=== PATIENT | male | born 1955 | race Caucasian/White ===

== ENCOUNTER 2017-05-21 16:00 | Observation (INO) | payer OTHER ==
[~2017-05-21] VITALS: Ht 180.3 cm; Wt 90.2 kg
[2017-05-21] MEDS ORDERED: ONDANSETRON INJ 2 MG/ML 2 ML VIAL IV STA (16:17)
[2017-05-21] MEDS ORDERED: SODIUM CHLORIDE 0.9% 1000ML 1,000 ML IV STA (16:17)
[2017-05-21] MEDS ORDERED: MoRPHine SULFATE 4 MG/ML 1 ML CARP\\VIAL IV PRN (16:30)
[2017-05-21 16:33] LABS: BASO % 0.1 %; BASO ABS # 0.02 K/uL (0-0.2); COMPLETE YES; EOS % 4.9 %; HEMATOCRIT 42.5 % (42-52); IG% 0.3 %; LYMPH % 16.9 %; MEAN CELL VOLUME 98.4 fL (80-100); MEAN CORPUSCULAR HEMOGLOBIN 33.6 pg (25-34); MEAN CORPUSCULAR HGB CONC 34.1 g/dl (32-36); MEAN PLATELET VOLUME 9.5 fL (7.4-10.4); MONO % 5.7 %; NEUT % 72.1 %; PLATELET COUNT 234 K/uL (130-400); RED BLOOD COUNT 4.32 M/uL (4.7-6.1); WHITE BLOOD COUNT 13.59 K/uL (4.8-10.8)
[2017-05-21 16:44] LABS: PARTIAL THROMBOPLASTIN RATIO 0.9; PROTHROMBIN TIME (PATIENT) 10.4 SECONDS (9.0-12.0)
[2017-05-21] MEDS ORDERED: ATOR-24 PO (16:44)
[2017-05-21] MEDS ORDERED: SPRIN/30 INH (16:45)
[2017-05-21] MEDS ORDERED: DiphenhydrAMINE HCL 50 MG/ML VIAL IV STA (16:46)
[2017-05-21] MEDS ORDERED: TIOTROPIUM 18 MCG INH (16:47)
[2017-05-21] MEDS ORDERED: MOME200A INH (16:48)
[2017-05-21] MEDS ORDERED: MONT1TAB5 PO (16:49)
[2017-05-21] MEDS ORDERED: NITR0.4S UT (16:50)
[2017-05-21 16:52] LABS: ALT/SGPT 24 U/L (12-78); AST/SGOT 25 U/L (15-37); BLOOD UREA NITROGEN 14 mg/dl (7-18); BUN/CREATININE RATIO 12.4 (10-20); CALCIUM 8.2 mg/dl (8.5-10.1); CARBON DIOXIDE 24 mmol/L (21-32); CHLORIDE 110 mmol/L (98-107); GLUCOSE 114 mg/dl (70-99); POTASSIUM 3.6 mmol/L (3.5-5.1); SODIUM 141 mmol/L (136-145)
[2017-05-21] MEDS ORDERED: OFLO0.3D4 OTR (16:52)
[2017-05-21] MEDS ORDERED: PRVHFAIN INH (16:55)
[2017-05-21 16:57] LABS: ALKALINE PHOSPHATASE 75 U/L (45-117)
[2017-05-21] MEDS ORDERED: AMOX875T PO (16:57)
--- NOTE | 2017-05-21 17:17 | DIAGNOSTIC IMAGING REPORT ---
CHEST ONE VIEW PORTABLE CLINICAL HISTORY: CHEST PAIN dyspnea COMPARISON STUDY: No previous studies for comparison. FINDINGS: Mild emphysematous change. Slight interstitial prominence. Mild fullness of the azygos esophageal recess. Minimal plate like atelectasis lung bases. IMPRESSION: 1. Mild fullness of the azygos esophageal recess. 2. Mild emphysematous change. 3. CT of chest is suggested as follow-up . This should be performed with intravenous contrast enhancement for satisfactory soft tissue differentiation purposes The above report was generated using voice recognition software. It may contain grammatical, syntax or spelling errors. Electronically signed by: Kwasi Mitchell M.D. 05/21/2017 5:03 PM Dictated Date/Time: 05/21/2017 5:01 PM
--- NOTE | 2017-05-21 17:26 | DIAGNOSTIC IMAGING REPORT ---
ABD/PELVIS NO IV OR ORAL CONT CT DOSE: 541.24 mGy.cm HISTORY: Pain left sided pain TECHNIQUE: Multiaxial CT images of the abdomen and pelvis were performed without contrast. A dose lowering technique was utilized adhering to the principles of ALARA. COMPARISON STUDY: None. FINDINGS: Mild bibasilar atelectasis. Prior cholecystectomy. Morphology of the liver and spleen are unremarkable. Fatty replacement of the pancreas. Suggestion of slight infiltrative change of the fat surrounding the pancreatic head and uncinate process. Several small surrounding nodes. No evidence for pancreatic or biliary ductal distention. Pancreatitis is considered. No evidence for abscess collection or obstruction. Kidneys negative for calcification or hydronephrosis. Generalized ectasia and atherosclerotic change abdominal aorta. Bowel pattern is considered nonobstructive. Bladder is midline. IMPRESSION: 1. Prior cholecystectomy. 2. Minimal infiltrative change of the peripancreatic fascial planes involving the pancreatic head and uncinate process. Possibility of low-grade pancreatitis is considered. Correlation with pancreatic enzymes status is recommended. Several small scattered peripancreatic nodes all less than 9 mm. 3. Mild bibasilar atelectasis. The above report was generated using voice recognition software. It may contain grammatical, syntax or spelling errors. Electronically signed by: Kwasi Mitchell M.D. 05/21/2017 5:24 PM Dictated Date/Time: 05/21/2017 5:18 PM
[2017-05-21] MEDS ORDERED: FAMOTIDINE 20MG/102 ML D5W IV STA (17:42)
[2017-05-21] MEDS ORDERED: PANTOprazole INJ 40 MG in SYRINGE 0 ML IV ONE ×2 (17:45→21:00)
--- NOTE | 2017-05-21 18:28 | EMERGENCY ROOM VISIT NOTE ---
History Report prepared by Mariselaibmagen: Cindy Hummel Under the Supervision of: Dr. Scott Crocker D.O. First contact with patient: 15:53 Chief Complaint: CHEST PAIN Stated Complaint: CHEST PAIN History of Present Illness The patient is a 62 year old male who presents to the Emergency Room with complaints of persistent chest pain that started prior to arrival. He was brought to the ED via EMS. The patient states he was at the [facility] in [place] prior to arrival for his 's doctor appointment when the pain came on suddenly. He rates his discomfort as a 9/10 in severity. He was given 324 mg of Aspirin, 2 Nitro, 800 ml NSS and 10 mg of Morphine in the field and reports they have only provided minimal relief. The patient also complains of epigastric abdominal pain and states his chest pain radiates into his left arm, shoulder and neck. He admits he experienced an UT approximately 13 years ago and also has past history of COPD. He is a current smoker. Source of History: patient Onset: [employer] Position: chest Symptom Intensity: 9/10 Timing: other (persistent) Modifying Factors (Relieving): other (Aspirin, Nitroglycerin) Review of Systems See HPI for pertinent positives & negatives. A total of 10 systems reviewed and were otherwise negative. Past Medical & Surgical Medical Problems: (1) COPD (chronic obstructive pulmonary disease) (2) Hyperlipidemia Surgical Problems: (1) History of cholecystectomy Family History Diabetes mellitus Heart disease Social History Smoking Status: Current Every Day Smoker Alcohol Use: none Drug Use: none Marital Status: Housing Status: lives with family Occupation Status: retired Current/Historical Medications Scheduled Amoxicillin & Pot Clavulanate (Augmentin 875-125 mg), 1 TAB PO BID Aspirin (Aspirin EC Low Dose), 81 MG PO QAM Atorvastatin (Lipitor), 40 MG PO DAILY Mometasone Furoate-Formoterol (Dulera 200/5 Mcg), 2 PUFFS INH BID Montelukast Sodium (Montelukast Sodium), 10 MG PO HS Nicotine (Nicoderm Cq 14MG Patch), 1 PATCH TD QAM Nitroglycerin (Nitrostat), 0.4 MG UT PRN Ofloxacin (Otic) (Floxin Otic), 7-8 DROPS OTR BID Tiotropium [place] (Spiriva Handihaler), 1 CAP INH DAILY [Spiriva Handih 18MCG], 1 CAP INH DAILY Scheduled PRN Albuterol (Ventolin Hfa), 2 PUFFS INH Q6 PRN for SOB/Wheezing Allergies Coded Allergies: Ibuprofen (Verified Allergy, Intermediate, HIVES/EDEMA, 05/21/17) Physical Exam Vital Signs Date Time Temp Pulse Resp B/P (MAP) Pulse Ox O2 Delivery O2 Flow Rate FiO2 05/21/17 18:12 74 20 114/70 94 Nasal Cannula 2.0 05/21/17 16:22 98 Room Air 05/21/17 16:20 37.1 81 20 116/69 98 Room Air 05/21/17 16:18 99 Nasal Cannula 2.0 05/21/17 16:15 99 Room Air 2.0 05/21/17 16:15 80 Physical Exam GENERAL: Patient is awake, alert, very anxious appearing and appears to be uncomfortable. EYES: The conjunctivae are clear. The pupils are round and reactive. EARS, NOSE, MOUTH AND THROAT: The nose is without any evidence of any deformity. Mucous membranes are moist tongue is midline NECK: The neck is nontender and supple. RESPIRATORY: Expiratory wheezing in all lung priest, no tachypnea or conversational dyspnea. CARDIOVASCULAR: Regular rate and rhythm noted there no murmurs rubs or gallops normal S1 normal S2 GASTROINTESTINAL: The abdomen is moderately distended but soft, left sided abdominal pain for palpation, no guarding or rigidity. PELVIS: The Pelvis is stable. No tenderness to palpation is noted. BACK: No midline tenderness or or step-off noted range of motion in flexion extension as well as rotation no signs of muscle spasm noted MUSCULOSKELETAL/EXTREMITIES: There is no evidence of gross deformity full range of motion is noted in the hips and shoulders SKIN: There is no obvious evidence of any rash. There are no petechiae, pallor or cyanosis noted. NEUROLOGIC: Patient is awake alert and oriented x3 Medical Decision & Procedures ER Provider Diagnostic Interpretation: Radiology results as stated below per my review and radiologist interpretation: CHEST ONE VIEW PORTABLE CLINICAL HISTORY: CHEST PAIN dyspnea COMPARISON STUDY: No previous studies for comparison. FINDINGS: Mild emphysematous change. Slight interstitial prominence. Mild fullness of the azygos esophageal recess. Minimal plate like atelectasis lung bases. IMPRESSION: 1. Mild fullness of the azygos esophageal recess. 2. Mild emphysematous change. 3. CT of chest is suggested as follow-up . This should be performed with intravenous contrast enhancement for satisfactory soft tissue differentiation purposes The above report was generated using voice recognition software. It may contain grammatical, syntax or spelling errors. Electronically signed by: Kwasi Mitchell M.D. 05/21/2017 5:03 PM ABD/PELVIS NO IV OR ORAL CONT CT DOSE: 541.24 mGy.cm HISTORY: Pain left sided pain TECHNIQUE: Multiaxial CT images of the abdomen and pelvis were performed without contrast. A dose lowering technique was utilized adhering to the principles of ALARA. COMPARISON STUDY: None. FINDINGS: Mild bibasilar atelectasis. Prior cholecystectomy. Morphology of the liver and spleen are unremarkable. Fatty replacement of the pancreas. Suggestion of slight infiltrative change of the fat surrounding the pancreatic head and uncinate process. Several small surrounding nodes. No evidence for pancreatic or biliary ductal distention. Pancreatitis is considered. No evidence for abscess collection or obstruction. Kidneys negative for calcification or hydronephrosis. Generalized ectasia and atherosclerotic change abdominal aorta. Bowel pattern is considered nonobstructive. Bladder is midline. IMPRESSION: 1. Prior cholecystectomy. 2. Minimal infiltrative change of the peripancreatic fascial planes involving the pancreatic head and uncinate process. Possibility of low-grade pancreatitis is considered. Correlation with pancreatic enzymes status is recommended. Several small scattered peripancreatic nodes all less than 9 mm. 3. Mild bibasilar atelectasis. The above report was generated using voice recognition software. It may contain grammatical, syntax or spelling errors. Electronically signed by: Kwasi Mitchell M.D. 05/21/2017 5:24 PM Laboratory Results 05/21/17 16:20 Test 05/21/17 16:20 05/21/17 16:26 Prothrombin Time 10.4 SECONDS (9.0-12.0) Prothromb Time International Ratio 1.0 (0.9-1.1) Activated Partial Thromboplast Time 24.2 SECONDS (21.0-31.0) Partial Thromboplastin Ratio 0.9 D-Dimer 860 ug/L FEU (0-500) Anion Gap 7.0 mmol/L (3-11) Est Creatinine Clear Calc Drug Dose 82.4 ml/min Estimated GFR () 82.4 Estimated GFR (Non- 71.1 BUN/Creatinine Ratio 12.4 (10-20) Calcium Level 8.2 mg/dl (8.5-10.1) Bedside Troponin I < 0.030 ng/ml (0-0.045) Laboratory results per my review. Medications Administered Medications (Trade) Dose Ordered Sig/De Route Start Time Stop Time Status Last Admin Dose Admin Morphine Sulfate (MoRPHine SULFATE INJ) 4 mg Q15M PRN IV 05/21/17 16:30 05/21/17 20:32 DC 05/21/17 16:33 4 MG Ondansetron HCl (Zofran Inj) 4 mg NOW STAT IV 05/21/17 16:17 05/21/17 16:18 DC 05/21/17 16:34 4 MG Sodium Chloride 1,000 ml @ 250 mls/hr Q4H STAT IV 05/21/17 16:17 05/21/17 20:16 DC 05/21/17 16:34 250 MLS/HR Diphenhydramine HCl (Benadryl Inj) 25 mg NOW STAT IV 05/21/17 16:46 05/21/17 16:47 DC 05/21/17 16:52 25 MG Pantoprazole Sodium 40 mg/ Syringe 10 ml @ 5 mls/min NOW ONCE IV 05/21/17 17:45 05/21/17 17:46 DC 05/21/17 18:11 5 MLS/MIN Famotidine (Pepcid 20mg/100 ml) 20 mg ONE STAT IV 05/21/17 17:42 05/21/17 17:43 DC 05/21/17 18:11 20 MG Sodium Chloride 1,000 ml @ 50 mls/hr Q20H IV 05/21/17 18:21 06/20/17 18:20 05/23/17 19:40 50 MLS/HR ECG Indication: chest pain Rate (beats per minute): 76 Rhythm: normal sinus Findings: no ectopy, other (No acute ST segment abnormalities) Change: no significant change (No change from EKG performed on September 05, 2015) Change: EKG performed at the patient's doctor's office prior to arrival showed a normal sinus rhythm, rate of 95, no ectopy, no acute ST segment abnormalities. ED Course 1610: The patient was evaluated in room B2. A complete history and physical examination were performed. 1617: NSS 1000 ml @ 250 mls/hr IV, Zofran 4 mg IV. 1630: Morphine Sulfate 4 mg IV. 1646: Benadryl 25 mg IV. 1742: Famotidine 20 mg/100 ml IV. 1745: Pantoprazole Sodium 40 mg/Syringe 10 ml @ 5 mls/hr IV. 174: I reevaluated the patient. He is feeling better and resting comfortably. I discussed my recommendation he remain in the hospital for further evaluation and management and he verbalized complete understanding and agreement. 175: I discussed the patients case with Dr. Ravi [facility] Hospitalist. The patient will be further evaluated. Medical Decision Prior records/ancillary studies reviewed. Triage Nursing notes reviewed. The patient's history was concerning for chest pain. Differential diagnosis: Etiologies such as cardiac ischemia, aortic dissection, pulmonary embolism, pneumonia, pneumothorax, musculoskeletal, infections, pericarditis, myocarditis , esophageal rupture, gastrointestinal, as well as others were entertained. The patient is a 62-year-old male who presented to the emergency department by ambulance from his primary care physician's office for epigastric pain. The patient has a history of coronary artery disease. He felt this pain was similar to his previous coronary artery disease. Patient's prehospital EKGs were reviewed. The patient appeared to have mild abdomen abnormalities in the inferior and high lateral leads but appeared very similar to previous EKGs. The patient was treated with IV pain medication prior to arrival. He was given aspirin as well. I discussed the patient's laboratory radiographic studies with him. I discussed his case with the on-call [facility] hospitalist group. They 've agreed to evaluate the patient in the emergency department for further management and disposition. I discussed the limitations of the emergency department workup for chest pain with the patient as well as his family. Medication Reconcilliation Current Medication List: was personally reviewed by me Blood Pressure Screening Patient's blood pressure: Normal blood pressure Blood pressure disposition: Did not require urgent referral Consults Time Called: 1749 Consulting Physician: Dr. Ravi [facility] Hospitalist Returned Call: 1751 I discussed the patients case with Dr. Ravi [facility] Hospitalist. The patient will be further evaluated. Impression Primary Impression: Substernal chest pain Additional Impressions: Epigastric abdominal pain Pancreatitis Scribe Attestation The scribe's documentation has been prepared under my direction and personally reviewed by me in its entirety. I confirm that the note above accurately reflects all work, treatment, procedures, and medical decision making performed by me. Departure Information Dispostion Being Evaluated By Hospitalist Prescriptions Aspirin (Aspirin EC Low Dose) 81 Mg Ectab 81 MG PO QAM for 30 Days Prov: Minh Alexandra MD, PhD 05/23/17 Nicotine (NICODERM CQ 14MG PATCH) 14 Mg/24 Hr Dis 1 PATCH TD QAM for 30 Days Prov: Minh Alexandra MD, PhD 05/23/17 Patient Instructions My [facility] Problem Qualifiers Additional Impressions: Pancreatitis Chronicity: acute Pancreatitis type: unspecified pancreatitis type Acute pancreatitis complication: unspecified Qualified Codes: K85.90 - Acute pancreatitis without necrosis or infection, unspecified
[2017-05-21] MEDS ORDERED: NITROGLYCERIN 0.4 MG SL PER TAB CHARGE SL PRN (18:30)
[2017-05-21] MEDS ORDERED: ALUMINUM/MAGNESIUM/SIMETH (MAALOX MAX) 30 ML UDC PO PRN (18:30)
[2017-05-21] MEDS ORDERED: ACETAMINOPHEN 325 MG TAB PO PRN (18:30)
[2017-05-21] MEDS ORDERED: MoRPHine SULFATE 2 MG/ML CARP IV PRN (18:30)
[2017-05-21] MEDS ORDERED: ALBUTEROL HFA 8 GM INHALER INH PRN (18:30)
[2017-05-21] MEDS ORDERED: ONDANSETRON INJ 2 MG/ML 2 ML VIAL IV PRN (18:30)
[2017-05-21] MEDS ORDERED: MAGNESIUM HYDROXIDE SUSP 30 ML UDC PO PRN (18:30)
[2017-05-21] MEDS ORDERED: ZOLPIDEM TARTRATE 5 MG TAB PO PRN (18:30)
[2017-05-21] MEDS ORDERED: OPTIRAY 320 IV PRN (18:45)
--- NOTE | 2017-05-21 18:52 | History and Physical ---
History & Physical Date of Service May 21, 2017. History & Physical chest pain rule out [id number]
--- NOTE | 2017-05-21 19:13 | DIAGNOSTIC IMAGING REPORT ---
(CHEST FOR PE) ANGIO WITH CT DOSE: 524.12 mGy.cm HISTORY: Chest pain dyspnea TECHNIQUE: Multiaxial CT images of the chest were performed following the intravenous administration of contrast to evaluate the pulmonary arteries. Maximal intensity projection images were also obtained. A dose lowering technique was utilized adhering to the principles of ALARA. COMPARISON STUDY: None. FINDINGS: Moderate atherosclerotic change thoracic aorta. No evidence for aneurysm or dissection. The pulmonary vasculature enhances appropriately. No significant or main filling defect. 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 This is accentuated by what appears to be a partially calcified 1.5 cm node. Several smaller noncalcified nodes are also appreciated. 6 mm superior mediastinal node. No bulky adenopathy. Pulmonary vasculature enhances appropriately. There are no major filling defects. Mild peribronchial thickening throughout both hemithoraces. Bibasilar atelectatic change. Several small indeterminate right hilar nodes are present measuring up to 7 mm. Bulky adenopathy is not appreciated. IMPRESSION: 1. No evidence for pulmonary embolus. 2. Bibasilar atelectatic change with generalized moderate peribronchial thickening. 3. Fullness of the azygos esophageal recess appears to be related to a combination of ectasia of the superior vena cava combine with a 1.5 cm adjacent partially calcified lymph node. 4. Several smaller partially calcified lymph nodes are also present with no evidence for significant or bulky adenopathy. 5. Mild apical fibrocalcific change possibly benign granulomatous in nature. The above report was generated using voice recognition software. It may contain grammatical, syntax or spelling errors. Electronically signed by: Kwasi Mitchell M.D. 05/21/2017 7:12 PM Dictated Date/Time: 05/21/2017 7:04 PM
--- NOTE | 2017-05-21 19:43 | HISTORY & PHYSICAL EXAMINATION ---
DATE OF ADMISSION: 05/21/2017 This is observation history and physical 40 minutes. CHIEF COMPLAINT: Chest pain and abdominal pain. HISTORY OF PRESENT ILLNESS: The patient is a 62-year-old white male with a significant past medical history of COPD, tobacco abuse, continued current smoking, dyslipidemia, history of remote GA comes to the hospital Emergency Department because of the above chief complaint. The patient reported has chest pain from 3:00 before this Emergency Room visit. Reported persistent left side chest pain 7-9/10, he came to the Emergency Room by EMS. The patient reports he was driving to his 's doctor's appointment and the chest pain came up, suddenly. There was discomfort 9/10 in severity. He was given 324 mg of aspirin, 2-time nitro, 800 mL NSS, and 10 mg morphine in the field, reported those had only provided minimal relief. The patient also complained of epigastric abdominal pain and seems like chest pain is radiation to his left arm, shoulder and neck. Reports he was having acute heart attack approximately 16 years ago when he was at 50s. The patient , in 2 months ago, was having COPD exacerbation, was admitted to [facility] for several days. He is a current smoker. After he arrived into the Emergency Room, lab testing shows leukocytosis. Cardiac enzyme troponin was negative. EKG was done and it was normal sinus rhythm, no ST-T phase changes. There was no previous EKG to compare. Chest x-ray was done, shows emphysema, otherwise no acute disease. Abdominal CT was done as well, which shows minimal infiltrative changes involving the pancreatic head and uncinate process. In the Emergency Room, patient got IV fluid, morphine 4 mg, Benadryl and famotidine 20 mg IV. He got Protonix as well x1 dose. When I examined him, he reported 0/10 pain, but he looked tired. Denied fever or chills. Denied cough, sputum, shortness of breath. Denied nausea, vomiting. No more abdominal pain. Denied diarrhea or constipation. Denied dysuria, urgency and frequencies. Denied facial droop, slurry speeches or local weakness. Denies skin rashes. Denied depression. PAST MEDICAL HISTORY: Include COPD, dyslipidemia, history of cholecystectomy and remote history of acute GA, possible in 50s. FAMILY HISTORY: Include diabetes and heart disease. SOCIAL HISTORY: Current smoker, 1 pack per day. Denied alcohol abuse disorder, denied illicit drug abuse. CURRENT MEDICATIONS: Include: 1. Amoxicillin 1 tab p.o. b.i.d. has been on 3 days, need to have 6-7 days more for ear infection in right ear. 2. Lipitor 40 mg p.o. daily. 3. Dulera 200/5 mcg 2 puff inhaled b.i.d. 4. Montelukast 10 mg p.o. at bedtime. 5. Nitrostat 0.4 mg as needed for chest pain. 6. Ofloxacin 7-8 drops right ear 2 times a day for 6-7 days because of ear infection. 7. Spiriva 1 cap inhaler daily. 8. Ventolin 2 puffs as needed p.r.n. for shortness of breath. PHYSICAL EXAMINATION: VITAL SIGNS: Temperature is 37, pulse 81, respiratory rate 20, blood pressure 116/69, pulse ox was 98% on 2 liters. GENERAL: The patient is white male, awake, alert and orientated, conversational, follows all commands. The patient looks tired but smiling, conversational. HEAD: Normocephalic. EYES: Pupils equal, round responds to light. EARS: Ear was normal. NOSE: Normal. NECK: Supple. Thyroid no enlargement. Trachea in midline. HEART: Regular rhythm. S1, S2. LUNGS: Decreased breathing sounds, but there was no wheezing, rhonchi and crackles. ABDOMEN: Soft, nontender. Bowel sound was positive. Bilateral CVA was nontender. GENITOURINARY AND RECTAL: Deferred. BACK: There was no spine tenderness. MUSCULOSKELETAL SYSTEM: No limited range of motion. SKIN: Has no rashes. NEUROLOGICAL EVALUATION: Cranial nerves II-XII was intact. There were no local deficits. LABORATORY STUDIES: WBC 13, hemoglobin 14, platelets 234; neutrophil was 72%. PT/INR was 10/1. D-dimer is pending. Sodium 141, potassium 3.6. BUN 14, creatinine 1.1. Calcium 8.2. Blood glucose 114. Total bilirubin 0.3, AST 25, ALT 24. Total CK 61, CK-MB 0.5, and troponin less than 0.03. IMAGING STUDIES: EKG is normal sinus rhythm. There were no ST-T phase changes like I mentioned in the above. Chest x-ray which shows mild fullness in azygoesophageal recess, moderate emphysematous changes. CT of chest recommend intravenous contrast CAT scan. Abdominal CT studies which shows prior cholecystectomy. Minimal infiltrative changes in the peripancreatic fascial plane involving the pancreatic head and uncinate process, possibility of low grade pancreatitis is considered. Correlation with pancreatic enzyme status is recommended, several small scattered peripancreatic nodes are less than 9 mm. Mild bibasilar atelectasis. ASSESSMENT AND PLAN: A 62-year-old white male with the problems below: 1. Chest pain with history of acute myocardial infarction 13 years ago and recent hospital admission because of chronic obstructive pulmonary disease exacerbation 2 months ago in [facility]. 2. Chest x-ray shows mild fullness of the azygoesophageal recess. 3. Abdominal CT shows slight infiltrations may consider pancreatitis; however, lipase is not elevated. 4. History of chronic obstructive pulmonary disease, continues smoking. 5. Tobacco abuse disorder. 6. History of dyslipidemia. 7. History of cholecystectomy. 8. Mild leukocytosis, white count 13. Based on the above medical conditions, the abdominal pain likely is from the chest pain radiation. However, I would like to rule out acute chest cavity disease such as acute PE or any aortic dissections. I am checking D-dimers and chest CT with contrast to rule out this. I will check cardiac enzyme troponin x3 sets more. If cardiac enzyme troponin is negative, we will do the stress echo tomorrow. Okay to give clear liquid diet tonight. N.p.o. midnight for the stress test tomorrow. We will give proton pump inhibitor for gastrointestinal prophylaxis. We will give a nicotine patch because of heavy smoking. We will check fasting lipid panel. Continue oxygen for now and morphine as needed. Continue aspirin for now. recent ear infection, he was having some pain , but no more pain, recent right ear infection, will continue Augmentin and ear drops for 6-7 days more. History of chronic obstructive pulmonary disease. We will continue her home medications including Ventolin inhaler, Singulair, Spiriva and Dulera as well. Deep venous thrombosis prophylaxis is heparin. Gastrointestinal prophylaxis is Protonix. The patient is full code. I discussed with patient and family about the care plan. I answered all the questions. The patient is satisfied. LORI
[2017-05-21 20:12] LABS: BASO % 0.2 %; BASO ABS # 0.02 K/uL (0-0.2); COMPLETE YES; EOS % 5.2 %; HEMATOCRIT 43.4 % (42-52); IG% 0.2 %; LYMPH % 14.7 %; LYMPH ABS # 1.85 K/uL (1.2-3.4); MEAN CELL VOLUME 98.6 fL (80-100); MEAN CORPUSCULAR HEMOGLOBIN 33.6 pg (25-34); MEAN CORPUSCULAR HGB CONC 34.1 g/dl (32-36); MEAN PLATELET VOLUME 9.7 fL (7.4-10.4); MONO % 6.5 %; NEUT % 73.2 %; PLATELET COUNT 208 K/uL (130-400); WHITE BLOOD COUNT 12.61 K/uL (4.8-10.8)
[2017-05-21] MEDS: SODIUM CHLORIDE 0.9% 1000ML 1,000 ML IV SCH (21:29)
[2017-05-21] MEDS: MONTELUKAST SOD 10 MG TAB PO SCH (21:30)
[2017-05-21] MEDS ORDERED: IV FLUIDS COMPLETED PRN (21:30)
[2017-05-21] MEDS: AMOXICILLIN/CLAVULANATE TAB 875 MG TAB PO SCH (21:31)
[2017-05-21] MEDS: HEPARIN SOD 5000 UNIT/0.5 ML CARP SQ SCH (21:37)
[2017-05-21 22:14] VITALS: BP 116/73; PULSE 67; TEMP 36.6; O2SAT 95; Ht 180.3 cm; Wt 90.2 kg
[2017-05-21 23:47] VITALS: BP 109/70; PULSE 65; TEMP 36.4; O2SAT 92
[2017-05-22 04:00] VITALS: BP 111/71; PULSE 65; TEMP 36.5; O2SAT 93
[2017-05-22] MEDS: SODIUM CHLORIDE 0.9% 1000ML 1,000 ML IV SCH ×2 (05:39→14:30)
[2017-05-22] MEDS: HEPARIN SOD 5000 UNIT/0.5 ML CARP SQ SCH ×3 (05:41→21:40)
[2017-05-22 07:55] VITALS: BP 128/77; PULSE 69; TEMP 36.5; O2SAT 94
[2017-05-22 09:25] LABS: CHOLESTEROL/HDL RATIO 3.8
[2017-05-22] MEDS ORDERED: ATROPINE SULFATE 0.1 MG/ML 5ML SYR ONE (09:42)
[2017-05-22] MEDS ORDERED: METOPROLOL TARTRATE 1 MG/ML VIAL ONE (09:42)
[2017-05-22] MEDS ORDERED: DOBUTamine HCL 12.5 MG/ML 20 ML VIAL ONE (09:42)
[2017-05-22] MEDS ORDERED: PANTOprazole INJ 40 MG in SYRINGE 0 ML IV SCH (11:00)
[2017-05-22] MEDS: NICOTINE 14 MG/24 HR TDSY TD SCH (11:21)
[2017-05-22] MEDS: AMOXICILLIN/CLAVULANATE TAB 875 MG TAB PO SCH ×2 (11:21→16:40)
[2017-05-22] MEDS: ASPIRIN 81 MG ECTAB PO SCH (11:21)
[2017-05-22] MEDS: TIOTROPIUM BROMIDE 5 PUFF/90 MCG INH INH SCH (11:22)
[2017-05-22 11:36] VITALS: BP 122/78; PULSE 66; TEMP 36.8; O2SAT 95
[2017-05-22 15:45] VITALS: BP 118/72; PULSE 67; TEMP 36.6; O2SAT 94
--- NOTE | 2017-05-22 16:53 | Progress Note ---
Subjective Date of Service: May 22, 2017. Subjective Pt evaluation today including: conversation w/ patient, conversation w/ family , physical exam, chart review, lab review, review of studies, conversation w/ senior sales consultant, review of inpatient medication list Report feeling tired, still have mild generalized abdominal pain, no nausea vomiting no diarrhea No fever and chill No chest pain Dobutamine stress test was done this morning Problem List Medical Problems: (1) Epigastric abdominal pain Status: Acute (2) Pancreatitis Status: Acute (3) Substernal chest pain Status: Acute Review of Systems Constitutional: + fatigue, No fever, No chills, No sweats, No weight loss, No weakness, No problem reported Eyes: No worsening of vision, No eye pain, No redness, No discharge, No diplopia ENT: No hearing loss, No unusual epistaxis, No nasal symptoms, No sore throat, No tinnitus, No dental problems, No trouble swallowing Respiratory: No cough, No sputum, No wheezing, No shortness of breath, No dyspnea on exertion, No dyspnea at rest, No hemoptysis Cardiac: No chest pain, No orthopnea, No PND, No edema, No claudication, No palpitations Abdomen: + pain, No nausea, No vomiting, No diarrhea, No constipation Musculoskeletal: No joint pain, No muscle pain, No swelling, No calf pain Male : No dysuria, No urinary frequency, No incontinence, No nocturia more than once/night, No slowing stream, No hematuria Neurologic: No memory loss, No paralysis, No weakness, No numbness/tingling, No vertigo, No balance problems Psychiatric: No depression symptoms, No anhedonism, No anxiety, No insomnia, No substance abuse Heme: No abnormal bleeding/bruising, No clotting problems, No swollen lymph nodes, No night sweats Endo: No fatigue, No excessive thirst, No excessive urination Skin: No rash, No itch, No new/changing skin lesions, No color change, No bleeding Objective Vital Signs Date Time Temp Pulse Resp B/P (MAP) Pulse Ox O2 Delivery O2 Flow Rate FiO2 05/22/17 15:45 36.6 67 18 118/72 (87) 94 Room Air 05/22/17 12:00 Room Air 05/22/17 11:36 36.8 66 18 122/78 (93) 95 05/22/17 08:00 Room Air 05/22/17 07:55 36.5 69 20 128/77 (94) 94 05/22/17 04:00 Room Air 05/22/17 04:00 36.5 65 20 111/71 (84) 93 Room Air 05/22/17 00:00 Room Air 05/21/17 23:47 36.4 65 18 109/70 (83) 92 Room Air 05/21/17 22:14 36.6 67 18 116/73 95 Room Air 05/21/17 18:48 74 20 116/74 95 Nasal Cannula 2.0 05/21/17 18:12 74 20 114/70 94 Nasal Cannula 2.0 Physical Exam General Appearance: WD/WN, no apparent distress, + thin, + pertinent finding ( looks tired) Eyes: normal inspection, PERRL, EOMI, sclerae normal ENT: normal ENT inspection, hearing grossly normal, pharynx normal Neck: supple, no adenopathy, thyroid normal, no JVD, no carotid bruits, trachea midline Respiratory/Chest: chest non-tender, normal breath sounds, no respiratory distress, no accessory muscle use, + decreased breath sounds Cardiovascular: regular rate, rhythm, no edema, no gallop, no JVD, no murmur Abdomen: normal bowel sounds, soft, no organomegaly, no pulsatile mass, + tenderness (possible minimal uncomfortable when I press abd) Extremities: normal range of motion, non-tender, normal inspection, no pedal edema, no calf tenderness, normal capillary refill, pelvis stable 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, no motor/sensory deficits, alert, normal mood/affect, oriented x 3 Skin: normal color, warm/dry, no rash Lymphatic: no adenopathy Laboratory Results Last 24 Hours Test 05/21/17 18:45 05/21/17 19:54 05/22/17 00:12 05/22/17 08:40 Creatine Kinase MB Ratio White Blood Count 12.61 K/uL Red Blood Count 4.40 M/uL Hemoglobin 14.8 g/dL Hematocrit 43.4 % Mean Corpuscular Volume 98.6 fL Mean Corpuscular Hemoglobin 33.6 pg Mean Corpuscular Hemoglobin Concent 34.1 g/dl Platelet Count 208 K/uL Mean Platelet Volume 9.7 fL Neutrophils (%) (Auto) 73.2 % Lymphocytes (%) (Auto) 14.7 % Monocytes (%) (Auto) 6.5 % Eosinophils (%) (Auto) 5.2 % Basophils (%) (Auto) 0.2 % Neutrophils # (Auto) 9.24 K/uL Lymphocytes # (Auto) 1.85 K/uL Monocytes # (Auto) 0.82 K/uL Eosinophils # (Auto) 0.65 K/uL Basophils # (Auto) 0.02 K/uL RDW Standard Deviation 48.1 fL RDW Coefficient of Variation 13.4 % Immature Granulocyte % (Auto) 0.2 % Immature Granulocyte # (Auto) 0.03 K/uL Erythrocyte Sedimentation Rate 11 mm/hr Creatine Kinase MB 0.7 ng/ml < 0.5 ng/ml < 0.5 ng/ml Troponin I < 0.015 ng/ml < 0.015 ng/ml < 0.015 ng/ml Total Creatine Kinase 66 U/L 67 U/L Test 05/22/17 08:44 05/22/17 16:31 Total Bilirubin 0.7 mg/dl Direct Bilirubin 0.2 mg/dl Aspartate Amino Transf (AST/SGOT) 18 U/L Alanine Aminotransferase (ALT/SGPT) 26 U/L Alkaline Phosphatase 70 U/L Total Protein 6.2 gm/dl Albumin 3.0 gm/dl Triglycerides Level 115 mg/dl Cholesterol Level 114 mg/dl HDL Cholesterol 30 mg/dl LDL Cholesterol, Calculated 61 mg/dl VLDL Cholesterol, Calculated 23 mg/dl Cholesterol/HDL Ratio 3.8 Lipase 120 U/L Bedside Glucose 91 mg/dl Assessment and Plan A 62-year-old white male was Observation from 05/21/2017 with the problems of chest pain and abdominal pain 1. Chest pain with history of acute myocardial infarction 13 years ago and recent hospital admission because of chronic obstructive pulmonary disease exacerbation 2 months ago in [facility]. Cardiac enzyme troponin were negative 2 set, patient had dobutamine stress test done, will follow-up formal resolved Will consult cardiology if positive Patient's LDL is less than 70, Continue aspirin, no need statin for now, blood pressure and heart rate in borderline low, therefore no need a beta leonel for now Chest x-ray shows mild fullness of the azygoesophageal recess. Chest CT has no acute PE and other acute disease Abdominal CT shows slight infiltrations may consider pancreatitis; however, lipase is not elevated. Today' lipase, continue normal, patient feeling has appetite, therefore I don't believe has any pancreatitis History of chronic obstructive pulmonary disease, continues smoking. Tobacco abuse disorder. History of dyslipidemia. History of cholecystectomy. Mild leukocytosis, white count 13, is better today, no us no signs of infection For abdominal pain, etiology unknown, so far evaluation is unremarkable, because patient is significant smoking and CAD will check abdominal artery ultrasound to see any stenosis of mesenteric artery which may cause abdominal pain, however patient reported the abdominal pain seems not related to any food intake Continue proton pump inhibitor for gastrointestinal prophylaxis. Continue nicotine patch because of heavy smoking. recent ear infection, he was having some pain , but no more pain, recent right ear infection, will continue Augmentin and ear drops for 6-7 days more. Deep venous thrombosis prophylaxis is heparin. Gastrointestinal prophylaxis is Protonix. advanced diet, follow-up abdominal ultrasound results, and possible discharge home tomorrow Continued [facility] stay due to: multiple IV medications needed Discharge planning: home
--- NOTE | 2017-05-22 17:26 | DOBUTAMINE ECHO ---
*NOTICE TO RECEIVING CONSTITUTION PARTY AGENCY This information is strictly Confidential and protected under [place] law. [place] law prohibits you from making any further disclosure of this information unless further disclosure is expressly permitted by the written consent of the person to whom it pertains or is authorized by law. A general authorization for the release of medical or other information is not sufficient for this purpose. Hospital accepts no responsibility if the information is made available to any other person, INCLUDING THE PATIENT. Interpretation Summary * Name: GABO MATHUR Study Date: 05/22/2017 08:33 AM BP: 128/82 mmHg * Patient Location: [facility] HR: 68 * : 1955 (M/d/yyyy) Gender: Male Height: 71 in * Age: 62 yrs Ethnicity: CA Weight: 218 lb * Ordering Physician: Minh Alexandra * Referring Physician: SHANIA * Performed By: Judith Maria RDCS * * Reason For Study: CHEST PAIN * BSA: 2.2 m2 * -- Conclusions -- * Dobutamine Stress Echo: * 1. Negative Dobutamine stress echo for ischemia at 97 % MPHR. Baseline wall motion abnormalities as described below. * 2. Negative Dobutamine ECG for ischemia at 97 % MPHR. * 3. Appropriate blood pressure response. * 4. No arrhythmia. * 5. No chest pain reported. * Echo: * 1. Mildly dilated left ventricle with mildly reduced systolic function. EF 45-50%. Severe hypokinesis of the inferolateral wall, otherwise, mild global hypokinesis at rest. No left ventricular hypertrophy. Type 1 diastolic dysfunction. * 2. No significant valvular abnormalities visualized. Procedure Details * DOBUTAMINE ECHO, CPT#00108 Left Ventricle * Mildly dilated left ventricle with mildly reduced systolic function. EF 45-50%. Severe hypokinesis of the inferolateral wall, otherwise, mild global hypokinesis at rest. No left ventricular hypertrophy. Type 1 diastolic dysfunction. * With dobutamine infusion, the left ventricular cavity became more vigorous with improvement of LV systolic function. There is augmentation of all visualized johnson, except for the inferolateral wall, which remained severely hypokinetic. Right Ventricle * The right ventricle is normal in size and function. * The right ventricular systolic function is normal as assessed by tricuspid annular plane systolic excursion (TAPSE) (normal >1.5 cm). Atria * The left atrial size is normal. * Right atrial size is normal. Mitral Valve * The mitral valve is grossly normal. * There is no mitral valve stenosis. * There is trace mitral regurgitation. Tricuspid Valve * The tricuspid valve is not well visualized, but is grossly normal. * There is no tricuspid stenosis. * There is trace tricuspid regurgitation. Aortic Valve * The aortic valve is trileaflet. * No hemodynamically significant valvular aortic stenosis. * There is no significant aortic regurgitation. Pulmonic Valve * The pulmonary valve is inadequately visualized, but the Doppler data is adequate for interpretation. * There is no significant pulmonary regurgitation. Great Vessels * The aortic root is normal size. * IVC normal in size and inspiratory collapse. Pericardium * There is no pericardial effusion. Stress Parameters * Sinus rhythm at 72 bpm. Possible septal infarct. * Stress ECG: No ST changes. No arrhythmias. * No arrhythmia were noted with stress. * The stress portion of this study was personally supervised by the undersigned interpreting physician. * Rest heart rate was '68' BPM. * Rest blood pressure was '128/82' * Maximum heart rate achieved was 153 bpm. * Maximum heart rate was 97 % of maximum age-predicted heart rate. * Maximum blood pressure was '170/46' * Maximum Dobutamine infusion rate was '40' mcg/kg/min. * Dobutamine infusion was terminated due to achieving target heart rate * A total of 5 mg of IV Metoprolol was administered to reverse Dobutamine-induced tachycardia. MMode 2D Measurements and Calculations IVSd 0.87 cm IVSs 1.1 cm LVIDd 5.6 cm LVIDs 4.5 cm LVPWd 0.81 cm LVPWs 1.1 cm IVS/LVPW 1.1 FS 19.1 % EDV(Teich) 153.0 ml ESV(Teich) 93.4 ml EF(Teich) 39.0 % EDV(cubed) 174.7 ml ESV(cubed) 92.4 ml EF(cubed) 47.1 % % IVS thick 22.3 % % LVPW thick 32.4 % LV mass(C)d 174.8 grams LV mass(C)dI 79.9 grams/m\S\2 LV mass(C)s 168.9 grams LV mass(C)sI 77.2 grams/m\S\2 SV(Teich) 59.6 ml SI(Teich) 27.3 ml/m\S\2 SV(cubed) 82.3 ml SI(cubed) 37.6 ml/m\S\2 Ao root diam 3.8 cm Ao root area 11.4 cm\S\2 LA dimension 2.9 cm asc Aorta Diam 2.7 cm LA/Ao 0.75 LVAd ap4 31.1 cm\S\2 LVLd ap4 8.6 cm EDV(MOD-sp4) 93.6 ml EDV(sp4-el) 95.0 ml LVAs ap4 21.2 cm\S\2 LVLs ap4 8.0 cm ESV(MOD-sp4) 49.4 ml ESV(sp4-el) 47.6 ml EF(MOD-sp4) 47.2 % EF(sp4-el) 49.9 % LVAd ap2 30.2 cm\S\2 LVLd ap2 8.6 cm EDV(MOD-sp2) 92.1 ml EDV(sp2-el) 89.8 ml LVAs ap2 19.2 cm\S\2 LVLs ap2 7.1 cm ESV(MOD-sp2) 45.7 ml ESV(sp2-el) 43.8 ml EF(MOD-sp2) 50.4 % EF(sp2-el) 51.3 % LVLd %diff -3.06 % EDV(MOD-bp) 99.9 ml LVLs %diff -7.02 % ESV(MOD-bp) 44.5 ml EF(MOD-bp) 55.4 % SV(MOD-sp4) 44.2 ml SI(MOD-sp4) 20.2 ml/m\S\2 SV(MOD-sp2) 46.4 ml SI(MOD-sp2) 21.2 ml/m\S\2 SV(MOD-bp) 55.3 ml SI(MOD-bp) 25.3 ml/m\S\2 SV(sp4-el) 47.4 ml SI(sp4-el) 21.7 ml/m\S\2 SV(sp2-el) 46.1 ml SI(sp2-el) 21.1 ml/m\S\2 Doppler Measurements and Calculations MV E max zoraida 78.6 cm/sec MV A max zoraida 85.4 cm/sec MV E/A 0.92 MV dec time 0.19 sec Ao V2 max 110.3 cm/sec Ao max PG 4.9 mmHg Ao max PG (full) 2.5 mmHg LV V1 max PG 2.4 mmHg LV V1 max 77.6 cm/sec
--- NOTE | 2017-05-22 18:46 | DIAGNOSTIC IMAGING REPORT ---
DUPLEX MESENTERIC CLINICAL HISTORY: abdominal pain pain. Nausea. TECHNIQUE: Doppler mesenteric COMPARISON STUDY: None FINDINGS: Mild/moderate narrowing of the origin of the celiac axis and superior mesenteric arteries. Inferior mesenteric artery shows unremarkable velocity characteristics. 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 This is estimated at 50%. No evidence for a high-grade or critical stenotic process. The above report was generated using voice recognition software. It may contain grammatical, syntax or spelling errors. Electronically signed by: Kwasi Mitchell M.D. 05/22/2017 6:45 PM Dictated Date/Time: 05/22/2017 6:43 PM
[2017-05-22 21:02] VITALS: BP 149/81; PULSE 79; TEMP 36.4; O2SAT 93
[2017-05-22] MEDS: MONTELUKAST SOD 10 MG TAB PO SCH (21:39)
[2017-05-23] VITALS (8 sets, daily range): BP systolic 116–168; BP diastolic 67–91; PULSE 72–99; TEMP 36.4–36.6; O2SAT 92–96
[2017-05-23] MEDS: SODIUM CHLORIDE 0.9% 1000ML 1,000 ML IV SCH ×3 (00:24→19:40)
[2017-05-23] MEDS: HEPARIN SOD 5000 UNIT/0.5 ML CARP SQ SCH ×4 (06:00→21:14)
[2017-05-23] MEDS: TIOTROPIUM BROMIDE 5 PUFF/90 MCG INH INH SCH (07:38)
[2017-05-23] MEDS: ASPIRIN 81 MG ECTAB PO SCH (07:38)
[2017-05-23] MEDS: PANTOprazole SOD 40 MG TAB PO SCH (07:38)
[2017-05-23] MEDS: AMOXICILLIN/CLAVULANATE TAB 875 MG TAB PO SCH ×2 (07:38→17:18)
[2017-05-23] MEDS: NICOTINE 14 MG/24 HR TDSY TD SCH (07:39)
[2017-05-23] MEDS ORDERED: ASPEC81 PO (11:35)
[2017-05-23] MEDS ORDERED: NICO14DI5 TD (11:35)
--- NOTE | 2017-05-23 11:35 | Discharge Instructions ---
Discharge Instructions Date of Service May 23, 2017. Admission Reason for Admission: Substernal Chest Pain Discharge Discharge Diagnosis / Problem: atypical Chest pain Discharge Goals Goal(s): Decrease discomfort, Improve function, Increase independence, Improve disease control, Improve nutritional status, Learn about illness, Diagnostic testing, Therapeutic intervention, Prevent Disease Progression, Specific goals Activity Recommendations Activity Limitations: as noted below . Instructions / Follow-Up Instructions / Follow-Up you have chest pain when was admitted cardiac cath was done, per report: there is No CAD, No aortic stenosis. we recomend Continue risk factor modification., we added Consider JAZ-inhibitor new medication Lisinopril for you, you reported had allergic reaction to Metoprolol. 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 This is estimated at 50%. No evidence for a high-grade or critical stenotic process. - you need to follow up with your primary care physician in 1 week,for all of the above conditions - take medication as instructed, never overdose or any misuse, or take with alcohol, because misuse of medicine may cause organ damage or , call your primary care physician if have questions of medicaitons. - call your primary care physician OR go to local emergency room if has any fever/chill, chest pain, shortness of breathing, nausea/vomiting/abdominal pain , facial droop/slurry speech/local weakness, or if has any questions. - fall precaution - diet as instructed - you need to follow up with your subspecialist - you should understand that it is important to follow up the above instruction , and "not following the above instruction" may cause delayed or missed care of your medical conditions which may cause permanent organ damage and even . ACTIVITY RECOMMENDATIONS: Excess manipulation of the wrist should be avoided for the next 24-48 hours. * No lifting over 2 pounds (approximately a 1/2 gallon of milk) with the utilized arm for 24 hours. * No strenuous activity such as bowling or tennis for 3 days. * Keep the site of the procedure covered with a bandage for 24 hours. *You may shower the day after the procedure. Do not take a tub bath or submerge the puncture site in water for the next 3 days. *Do not operate any motorized equipment for 3 days. SPECIAL CARE INSTRUCTIONS: The site may be slightly bruised and sore following your procedure. Should any of the following occur, contact the Dr. who performed your procedure. 1. Redness/inflammation, swelling, chills, or fever, or colored drainage at procedure site within 3-7 days after your procedure. 2. Coldness, discoloration, ongoing numbness, severe pain, or swelling. Expect mild tingling of hand and tenderness at the puncture site for up to three days. If this persists beyond three days, or other symptoms develop, notify the Dr. who performed your procedure. BLEEDING: If the procedure site on your wrist begins to bleed, do not panic 1. Place 1 or 2 fingers firmly just slightly above the insertion site to stop the bleeding. You may be able to feel your pulse as you hold pressure. 2. Lift your finger after 5 minutes to see if the bleeding has stopped. 3. Once the bleeding has stopped, gently wipe the wrist area clean with a bandage. * If the bleeding from your wrist does not stop after 10 minutes, or if there is a large amount of bleeding or spurting, call 911 (do not drive yourself to the hospital). SKIN IRRITATION: * You may experience some redness and/or swelling in the area where radiation was administered. If any skin irritation occurs, please contact your family physician. FOLLOW UP VISIT: Keep any scheduled doctor appointments. Current Hospital Diet Patient's current hospital diet: Regular Diet Discharge Diet Recommended Diet: AHA Diet (Heart Healthy) Procedures Procedures Performed: [facility] Pending Studies Studies pending at discharge: no Laboratory Results Lipid Panel Test 05/22/17 08:44 Range/Units Triglycerides Level 115 0-150 mg/dl Cholesterol Level 114 0-200 mg/dl HDL Cholesterol 30 mg/dl Cholesterol/HDL Ratio 3.8 LDL Cholesterol, Calculated 61 mg/dl Medical Emergencies . Who to Call and When: Medical Emergencies: If at any time you feel your situation is an emergency, please call 911 immediately. . Non-Emergent Contact Non-Emergency issues call your: Primary Care Provider . . "Provider Documentation" section prepared by Minh Alexandra. . VTE Core Measure Inpt VTE Proph given/why not?: Unfractionated heparin SQ
--- NOTE | 2017-05-23 12:34 | Progress Note ---
Subjective Date of Service: May 23, 2017. Subjective Pt evaluation today including: conversation w/ patient, physical exam, chart review, lab review, review of studies, conversation w/ client experience consultant, review of inpatient medication list Sitting up in chair, feeling better, no more chest pain, still has minimal abdominal pain around the umbilical area Problem List Medical Problems: (1) Epigastric abdominal pain Status: Acute (2) Pancreatitis Status: Acute (3) Substernal chest pain Status: Acute Review of Systems Constitutional: No see HPI, No fever, No chills, No sweats, No weight loss, No weakness, No fatigue, No problem reported ENT: No see HPI, No hearing loss, No unusual epistaxis, No nasal symptoms, No sore throat, No tinnitus, No dental problems, No trouble swallowing, No problem reported Respiratory: No see HPI, No cough, No sputum, No wheezing, No shortness of breath, No dyspnea on exertion, No dyspnea at rest, No hemoptysis, No problem reported Cardiac: No see HPI, No chest pain, No orthopnea, No PND, No edema, No claudication, No palpitations, No problem reported Breast: No see HPI, No breast lump, No change in shape, No nipple discharge, No breast pain, No problem reported Abdomen: + see HPI, + pain, No nausea, No vomiting, No diarrhea, No constipation, No GI bleeding, No problem reported Musculoskeletal: No see HPI, No joint pain, No muscle pain, No swelling, No calf pain, No problem reported Male : No see HPI, No dysuria, No urinary frequency, No incontinence, No nocturia more than once/night, No slowing stream, No hematuria, No sexual dysfunction, No problem reported Neurologic: No see HPI, No memory loss, No paralysis, No weakness, No numbness/ tingling, No vertigo, No balance problems, No problem reported Psychiatric: No see HPI, No depression symptoms, No anhedonism, No anxiety, No insomnia, No substance abuse, No problem reported Objective Vital Signs Date Time Temp Pulse Resp B/P (MAP) Pulse Ox O2 Delivery O2 Flow Rate FiO2 05/23/17 12:14 36.5 78 20 130/83 (99) 96 Room Air 05/23/17 12:00 Room Air 05/23/17 08:00 Room Air 05/23/17 07:35 36.4 84 18 156/89 (111) 95 Room Air 05/23/17 04:32 36.6 80 18 134/73 (93) 92 Room Air 05/23/17 04:00 Room Air 05/23/17 00:23 36.4 72 20 124/74 (91) 92 Room Air 05/23/17 00:00 Room Air 05/22/17 21:02 36.4 79 19 149/81 (103) 93 Room Air 05/22/17 20:00 Room Air 05/22/17 16:00 Room Air 05/22/17 15:45 36.6 67 18 118/72 (87) 94 Room Air Physical Exam General Appearance: WD/WN, no apparent distress Eyes: normal inspection, PERRL, EOMI, sclerae normal ENT: normal ENT inspection, hearing grossly normal, pharynx normal Neck: supple, no adenopathy, thyroid normal, no JVD, no carotid bruits, trachea midline Respiratory/Chest: chest non-tender, lungs clear, normal breath sounds, no respiratory distress, no accessory muscle use Cardiovascular: regular rate, rhythm, no edema, no gallop, no JVD, no murmur Abdomen: normal bowel sounds, non tender, soft, no organomegaly, no pulsatile mass Extremities: normal range of motion, non-tender, normal inspection, no pedal edema, no calf tenderness, normal capillary refill, pelvis stable Neurologic/Psychiatric: 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 Chest pain with history of acute myocardial infarction 13 years ago and recent hospital admission because of chronic obstructive pulmonary disease exacerbation 2 months ago in [facility]. Cardiac enzyme troponin were negative 2 set, patient had dobutamine stress test done, will follow-up formal resolved Will consult cardiology if positive Patient's LDL is less than 70, Continue aspirin, no need statin for now, blood pressure and heart rate in borderline low, therefore no need a beta leonel for now consult edge trimmer mechanic b/c " Severe hypokinesis of the inferolateral wall" and "Mildly dilated left ventricle with mildly reduced systolic function. EF 45-50% ". , likely from hx [place] years ago, but patient has no f/u edge trimmer mechanic, and will consult cardio now stress echo per report in below: * 1. Negative Dobutamine stress echo for ischemia at 97 % MPHR. Baseline wall motion abnormalities as described below. * 2. Negative Dobutamine ECG for ischemia at 97 % MPHR. * 3. Appropriate blood pressure response. * 4. No arrhythmia. * 5. No chest pain reported. * Echo: * 1. Mildly dilated left ventricle with mildly reduced systolic function. EF 45 -50%. Severe hypokinesis of the inferolateral wall, otherwise, mild global hypokinesis at rest. No left ventricular hypertrophy. Type 1 diastolic dysfunction. * 2. No significant valvular abnormalities visualized. Chest x-ray shows mild fullness of the azygoesophageal recess. Chest CT has no acute PE and other acute disease Abdominal CT shows slight infiltrations may consider pancreatitis; however, lipase is not elevated. Today' lipase, continue normal, patient feeling has appetite, therefore I don't believe has any pancreatitis History of chronic obstructive pulmonary disease, continues smoking. Tobacco abuse disorder. History of dyslipidemia. History of cholecystectomy. Mild leukocytosis, white count 13, is better today, no us no signs of infection For abdominal pain, etiology unknown, so far evaluation is unremarkable, because patient is significant smoking and CAD has checked abdominal artery ultrasound to see any stenosis of mesenteric artery which may cause abdominal pain: result see below: Moderate narrowing origin of the celiac axis and proximal superior mesenteric artery. This is estimated at 50%. No evidence for a high-grade or critical stenotic process. Has discussed with patient about the results, recommend to follow-up with PCP recent ear infection, he was having some pain , but no more pain, recent right ear infection, will continue Augmentin and ear drops for 6-7 days more. Deep venous thrombosis prophylaxis is heparin. Gastrointestinal prophylaxis is Protonix. advanced diet, follow-up cardiology input , and possible discharge home tomorrow Continued [facility] stay due to: home environment unsafe for pt Discharge planning: home
[2017-05-23] MEDS ORDERED: METOPROLOL SUCC 25MG EXT REL TAB PO STA (18:44)
[2017-05-23] MEDS ORDERED: NURSING VERBAL MED ORDER ONE (18:45)
--- NOTE | 2017-05-23 20:12 | CARDIOLOGY CONSULTATION ---
DATE OF CONSULTATION: 05/23/2017 TIME: 1831 CONSULTING PHYSICIAN: Minh Alexandra MD REASON FOR CONSULTATION: Severe hypokinesis of the inferolateral wall. HISTORY OF PRESENT ILLNESS: Mr. Gaffney is a pleasant 62-year-old gentleman with a history significant for presumed CAD following a myocardial infarction in , COPD, tobacco abuse and dyslipidemia. He presented to [facility] on 05/21/2017 with chest pain. He states that in the , he had left-sided chest discomfort described as a pressure without radiation, but was accompanied by shortness of breath, diaphoresis and a syncopal episode. He states that he went to the hospital and was told he had a myocardial infarction. He did not undergo cardiac catheterization and has no further details. For the past week, he has been having increasing frequency and severity of chest discomfort. It is a left-sided chest discomfort described as a pressure. It can occur at rest, but also with exertion. He states that if he does certain physical activities he is more likely to have the pain. He is accompanied by shortness of breath and diaphoresis, but no radiation of the pain. It would resolve within approximately 15 minutes and if he was exerting himself, it would resolve with rest. On the day of presentation, while in a van driving to his 's doctor appointment he had a much more severe episode that lasted for 30 minutes. He reclined in the van and he felt slightly better, but continued to have the pain. He apparently was quite pale in appearance, quite diaphoretic and had near syncope. He was also short of breath. He came to the Emergency Department via ambulance. He was given nitroglycerin with some relief, but it did not completely resolve his pain. He was also given aspirin and morphine. The pain eventually resolved in approximately 30 minutes. He apparently also had epigastric discomfort; however, he states that this pain has been going on for a few months and has been linked to certain foods, especially greasy food. He believes that food is a trigger for the epigastric pain, but not the chest pain. He has chronic dyspnea with exertion, which has gradually worsened overtime and has been attributed to COPD. He apparently has been treated for COPD exacerbation in [facility] a few months ago. He continues to smoke. He denies melena, hematochezia, hematuria, nausea, vomiting, diarrhea, fevers, chills, syncope, orthopnea or palpitations. He took aspirin in the past, but had easy bruising and therefore no longer takes aspirin. He did not have any significant bleeding however. REVIEW OF SYSTEMS: As above. Review of systems is otherwise negative/unremarkable. PAST MEDICAL HISTORY: 1. Reported myocardial infarction in the for which he sought out medical attention, but did not have cardiac catheterization. 2. Dyslipidemia. 3. COPD. 4. Status post cholecystectomy. 5. Tobacco abuse. 6. History of lung mass status post resection. HOME MEDICATIONS: Include; Lipitor 40 mg daily, montelukast, Spiriva, Ventolin and Dulera. INPATIENT MEDICATIONS: Include; aspirin 81 mg daily, heparin 5,000 units subq. every 8 hours, Nicotine patch, Singulair, Protonix 40 mg daily and Spiriva. ALLERGIES: IBUPROFEN. SOCIAL HISTORY: Current smoker. Smoked approximately 50 pack years, 1 pack per day. No alcohol or drug abuse. He is , lives at home with his . They have 4 children. 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 FAMILY HISTORY: Father had heart surgery of some degree; he does not know any further details. His brother was shot and killed approximately 30 years ago and he continues to deal with mourning from his brother's . PHYSICAL EXAMINATION: VITAL SIGNS: Temperature 36.4 degrees, heart rate 73 beats per minute, respiratory rate 18, blood pressure 145/87 mmHg and oxygen saturation 95% on room air. Blood pressure has been mostly normotensive throughout his hospital stay. Weight 90.9 kilograms. I's and O's negative, approximately 1 liter so far today. GENERAL: No acute distress. He is alert and oriented. HEENT: Anicteric sclerae. NECK: No appreciable JVD. No bruits. Normal carotid upstrokes bilaterally. CARDIAC: PMI was nonpalpable. There was no ventricular heave. Regular, normal S1, S2. There are no murmurs, rubs or gallops auscultated. LUNGS: Decreased breath sounds throughout, but otherwise clear. ABDOMEN: Soft, nontender, nondistended and normoactive bowel sounds. No bruits noted. EXTREMITIES: No cyanosis or edema. Has 2+ radial pulse bilaterally. Howie's test is okay. Has 2+ femoral pulses bilaterally without bruit. Has 2+ dorsalis pedis pulses bilaterally. No cyanosis. No edema. No palpable cords. PSYCHIATRIC: Affect appears appropriate. CHEST: Nontender. LABORATORY DATA: White blood cell count 12.61, hemoglobin 14.8, platelets 208 and ESR 11. Sodium 141, potassium 3.6, BUN 14, creatinine 1.1. Troponin undetectable on serial evaluation. Albumin 3, AST 18, ALT 26, triglycerides 115. Total cholesterol 114, LDL 61, HDL 30, lipase 120. INR 1. D-dimer 860. CT chest on 05/21/2017; no evidence of pulmonary embolus. Generalized moderate peribronchial thickening and bibasilar atelectatic change. Partially calcified lymph nodes. Abdomen/pelvis CT 05/21/2017: Minimal infiltrative changes of peripancreatic facial planes; possibly low grade pancreatitis considered per Radiology. Peripancreatic nodes less than 9 mm. Mild bibasilar atelectasis. ECG upon presentation personally reviewed and demonstrated normal sinus rhythm at 76 beats per minute. Repeat ECG on 05/23/17 at 7:03 a.m.; sinus rhythm at 77 beats per minute. Stress echo on 05/22/2017 personally reviewed: There was mildly reduced LV systolic function at baseline with mild LV dilation. EF was 45-50%. There was mild global hypokinesis with perhaps more severe hypokinesis of the inferolateral wall. Type 1 diastolic dysfunction. No significant valvular abnormalities. Dobutamine stress echo without definite ischemic changes; however, the inferolateral wall was not as well-visualized upon personal review. Negative dobutamine ECG and 97% MPHR. No chest pain reported. No arrhythmia. ASSESSMENT AND PLAN: 1. Mild cardiomyopathy: He does have mildly reduced left ventricular systolic function. We will start low dose metoprolol succinate. Would also consider JAZ inhibitor as tolerated at some point. He appears euvolemic. Further ischemic evaluation as noted below. 2. Chest pain/angina: His symptoms are concerning for angina. It feels exactly like his myocardial infarction in the past and his symptoms began approximately 1 week ago and he believes they have been worsening overtime and at times related to exertion as well. Given his risk factors, baseline echo findings and the fact that current symptoms are exactly the same as his prior angina, recommend further ischemic evaluation with coronary angiography. Risks and benefits were discussed with him in detail. He was made aware that cardiothoracic surgery is not available at this facility. He has verbally given consent to undergo diagnostic angiography and percutaneous coronary intervention if deemed appropriate at this facility. Nothing by mouth after midnight. Continue aspirin. Resume high intensity statin therapy. The plan was also communicated with his via telephone as well as nursing staff. 3. Dyslipidemia: Lipids are well-controlled. Will resume high intensity statin therapy given concern for underlying coronary artery disease. 4. Coronary artery disease: He has presumed coronary artery disease based on prior myocardial infarction reported in the . Agree with aspirin 81 mg daily. High intensity statin therapy. Initiating beta leonel as above for symptoms as noted as well as mildly reduced LV systolic function. 5. Code status: Nursing staff related to me that he prefers to be a DO NOT RESUSCITATE. This was discussed with him. We discussed in detail and he would like to be DO NOT RESUSCITATE, but is agreeable to be resuscitated during cardiac catheterization, if appropriate. This was also relayed to Dr. Alexandra of the primary hospitalist service who can further discuss his wishes with him. 6. Tobacco Abuse: Recommended that he stop smoking. 7. Disposition: Cardiac catheterization tomorrow when sleep lab technologist is available. Cardiology will continue to follow. Highly complex medical issues. Plan of care discussed with Dr. Alexandra of the primary service. Thank you for allowing me to participate in the care of Mr. Gaffney. Sincerely, LORI
[2017-05-23] MEDS ORDERED: ATORVASTATIN 40 MG TAB PO SCH (21:00)
[2017-05-23] MEDS: MONTELUKAST SOD 10 MG TAB PO SCH (21:12)
--- NOTE | 2017-05-23 22:04 | Progress Note ---
Progress Note Date of Service May 23, 2017. Progress Note patient developed pruritus after administration of Metoprolol, will hold am dose and 12.5mg of benadryl ordered
[2017-05-23] MEDS ORDERED: DiphenhydrAMINE HCL 50 MG/ML VIAL ONE (22:10)
[2017-05-23] MEDS ORDERED: DiphenhydrAMINE INJ 12.5 MG in SYRINGE 0 ML IV PRN (22:15)
[2017-05-24] VITALS (13 sets, daily range): BP systolic 121–150; BP diastolic 64–90; PULSE 67–87; TEMP 36.5–36.8; O2SAT 91–98
[2017-05-24] MEDS ORDERED: DiphenhydrAMINE HCL 50 MG/ML VIAL IV PRN (02:45)
[2017-05-24 06:00] LABS: HEMATOCRIT 42.2 % (42-52); MEAN CELL VOLUME 97.5 fL (80-100); MEAN CORPUSCULAR HEMOGLOBIN 33.9 pg (25-34); MEAN CORPUSCULAR HGB CONC 34.8 g/dl (32-36); MEAN PLATELET VOLUME 9.7 fL (7.4-10.4); PLATELET COUNT 224 K/uL (130-400); RED BLOOD COUNT 4.33 M/uL (4.7-6.1); WHITE BLOOD COUNT 9.71 K/uL (4.8-10.8)
[2017-05-24] MEDS: HEPARIN SOD 5000 UNIT/0.5 ML CARP SQ SCH ×2 (06:00→11:42)
[2017-05-24] MEDS: TIOTROPIUM BROMIDE 5 PUFF/90 MCG INH INH SCH (07:49)
[2017-05-24] MEDS: NICOTINE 14 MG/24 HR TDSY TD SCH (07:49)
[2017-05-24] MEDS ORDERED: METOPROLOL SUCC 25MG EXT REL TAB PO SCH (09:00)
--- NOTE | 2017-05-24 11:26 | CARDIOLOGY PROGRESS NOTE ---
DATE: 05/24/2017 DATE: 05/24/2017 TIME: 10:51 a.m. SUBJECTIVE: Mr. Gaffney denies chest pain, shortness of breath, syncope, near syncope, palpitations or edema. After receiving metoprolol last night he apparently developed pruritus, but no rash. He was given Benadryl and medication was discontinued. He feels better. He states he had no other new medications around the time of his metoprolol before the pruritus occurred. OBJECTIVE: VITAL SIGNS: Temperature 36.7 degrees, heart rate 75 beats per minute, respiration rate 18, blood pressure 143/83 mmHg, however blood pressure has been mostly normotensive. Oxygen saturation 92% on room air. I's and O's negative 1 liter yesterday, weight is 90.2 kg. GENERAL: No acute distress. He is alert and oriented. HEAD, EYES, EARS, NOSE, AND THROAT: Anicteric sclerae. NECK: No JVD. CARDIAC EXAMINATION: No ventricular heave. Regular, normal S1, S2. No murmurs, rubs, or gallops were auscultated. LUNGS: Lungs did have some mild expiratory wheezing, otherwise clear. ABDOMEN: Soft, nontender, nondistended. Normoactive bowel sounds. EXTREMITIES: No cyanosis or edema. Distal pulses intact. PSYCHIATRIC: Affect appears appropriate. MEDICATIONS: Include aspirin 81 mg daily, Lipitor 40 mg at bedtime, metoprolol succinate 25 mg once last evening which has since been discontinued, Singulair 10 mg daily, nicotine patch, Protonix 40 mg daily, normal saline at 50 mL per hour. LABORATORY DATA: White blood cell count 9.71, hemoglobin 14.7, platelets 224, glucose 91. Telemetry strips personally reviewed. Sinus rhythm. No arrhythmia. ASSESSMENT AND PLAN: 1. Angina: His chest pain is concerning for angina given the fact that it resembles his prior myocardial infarction and recent onset of his symptoms. Coronary angiography planned for today. He was made aware that CT surgery is not available at this facility and with inclement weather elective PCI may not be available today. He would like to continue with plan of diagnostic coronary angiography today at this facility. Other options were also discussed with him such as transfer to another facility, but he would like to remain here. Continue aspirin and high intensity statin therapy. 2. Mild cardiomyopathy: Mildly reduced LV systolic function. Ideally would like a beta leonel and an JAZ inhibitor. He developed pruritus after metoprolol succinate. Cardiac catheterization is likely to occur soon and therefore we will not start lisinopril at this point but during this hospitalization, would recommend starting lisinopril 5 mg daily at some point if no contraindications. He appears euvolemic. 3. Dyslipidemia: Continue high intensity statin therapy for presumed CAD. 4. Coronary artery disease: He has presumed CAD based on prior myocardial infarction during a hospitalization in the . Continue aspirin, high intensity statin therapy and plan of coronary angiography later today. 5. Tobacco abuse: Stop smoking. 6. Disposition: Cardiac catheterization pending.
[2017-05-24] MEDS: AMOXICILLIN/CLAVULANATE TAB 875 MG TAB PO SCH ×2 (11:41→16:40)
[2017-05-24] MEDS: PANTOprazole SOD 40 MG TAB PO SCH (11:41)
[2017-05-24] MEDS: ASPIRIN 81 MG ECTAB PO SCH (11:41)
[2017-05-24] MEDS ORDERED: FENTANYL CITRATE INJ 50 MCG/1 ML 2 ML VIAL ONE (11:59)
[2017-05-24] MEDS ORDERED: HEPARIN SOD (PORCINE) 1000 UNIT/ML 10 ML VIAL ONE (11:59)
[2017-05-24] MEDS ORDERED: NiCARDipine HCL INJ 2.5 MG/ML 10 ML AMP ONE (11:59)
[2017-05-24] MEDS ORDERED: MIDAZOLAM HCL 1 MG/ML 2ML VIAL ONE (11:59)
[2017-05-24] MEDS ORDERED: NITROGLYCERIN/D5W 100MCG/ML 20ML SYR ONE (12:00)
--- NOTE | 2017-05-24 12:19 | Procedure Note ---
Pre-Mod Sedation Assessment General Date of Moderate Sedation: May 24, 2017. Vital Signs: Vital Signs Past 12 Hours Date Time Temp Pulse Resp B/P (MAP) Pulse Ox O2 Delivery O2 Flow Rate FiO2 05/24/17 11:28 36.8 71 16 148/84 (105) 93 Room Air 05/24/17 08:00 Room Air 05/24/17 07:11 36.7 75 18 143/83 (103) 92 05/24/17 06:40 36.8 87 18 121/64 91 Room Air 05/24/17 04:12 36.8 87 18 121/64 (83) 91 Room Air 05/24/17 04:00 Room Air Review Cardiovascular: regular rate, rhythm Abdomen: soft Lungs: lungs clear Pre-Sedation Airway Assessment Oral Cavity: WNL Short Thick Neck: No Hx of Sleep Apnea: No Smoking Status: Heavy Tobacco Smoker Procedure Planning Contraindications-for Mod Sed: None Yes Notes The planned sedation has been discussed with the patient and consent obtained. I have identified the patient, determined the appropriateness of sedation and have assessed the patient immediately prior to the procedure. All medicine(s) and interventions are by my order.
--- NOTE | 2017-05-24 12:59 | Procedure Note ---
Post-Mod Sedation Assessment General Date of Moderate Sedation May 24, 2017. Vital Signs: Vital Signs Past 12 Hours Date Time Temp Pulse Resp B/P (MAP) Pulse Ox O2 Delivery O2 Flow Rate FiO2 05/24/17 12:55 78 18 128/85 (99) 95 Room Air 05/24/17 12:40 80 18 123/82 (96) 93 3 05/24/17 12:30 Room Air 05/24/17 11:28 36.8 71 16 148/84 (105) 93 Room Air 05/24/17 08:00 Room Air 05/24/17 07:11 36.7 75 18 143/83 (103) 92 05/24/17 06:40 36.8 87 18 121/64 91 Room Air 05/24/17 04:12 36.8 87 18 121/64 (83) 91 Room Air 05/24/17 04:00 Room Air Review - Discharge Criteria Vital Signs Stable: Yes Alert/Oriented/Conversant: Yes Returned to Baseline Mental St: Yes Nausea Absent/Minimal: Yes Pain/Discomfort/Absent/Minimal: Yes Normal/Baseline Respirations: Yes Active Bleeding?: No
--- NOTE | 2017-05-24 13:01 | Consultant Recommendations ---
Warehouse Associate Driver Recommendations Date of Service May 24, 2017. Warehouse Associate Driver Recommendations ACTIVITY RECOMMENDATIONS: Excess manipulation of the wrist should be avoided for the next 24-48 hours. * No lifting over 2 pounds (approximately a 1/2 gallon of milk) with the utilized arm for 24 hours. * No strenuous activity such as bowling or tennis for 3 days. * Keep the site of the procedure covered with a bandage for 24 hours. *You may shower the day after the procedure. Do not take a tub bath or submerge the puncture site in water for the next 3 days. *Do not operate any motorized equipment for 3 days. SPECIAL CARE INSTRUCTIONS: The site may be slightly bruised and sore following your procedure. Should any of the following occur, contact the Dr. who performed your procedure. 1. Redness/inflammation, swelling, chills, or fever, or colored drainage at procedure site within 3-7 days after your procedure. 2. Coldness, discoloration, ongoing numbness, severe pain, or swelling. Expect mild tingling of hand and tenderness at the puncture site for up to three days. If this persists beyond three days, or other symptoms develop, notify the Dr. who performed your procedure. BLEEDING: If the procedure site on your wrist begins to bleed, do not panic 1. Place 1 or 2 fingers firmly just slightly above the insertion site to stop the bleeding. You may be able to feel your pulse as you hold pressure. 2. Lift your finger after 5 minutes to see if the bleeding has stopped. 3. Once the bleeding has stopped, gently wipe the wrist area clean with a bandage. * If the bleeding from your wrist does not stop after 10 minutes, or if there is a large amount of bleeding or spurting, call 911 (do not drive yourself to the hospital). SKIN IRRITATION: * You may experience some redness and/or swelling in the area where radiation was administered. If any skin irritation occurs, please contact your family physician. FOLLOW UP VISIT: Keep any scheduled doctor appointments.
--- NOTE | 2017-05-24 13:10 | Cardiac Catheterization ---
Procedure Note Procedure Date May 24, 2017. Pre-Procedure Diagnosis Angina, Cardiomyopathy AUC Score 7 Post-Procedure Diagnosis Normal Coronary Arteries, Normal Intracardiac Pressures Procedure(s) Performed Coronary Angiography, Left Heart Cath [employer] Dr. Granados Professor Of [employer] Planning(s) Adria Estimated Blood Loss < 20 ml Medication(s) Fentanyl, Heparin, Nicardipine, Versed, Lidocaine 1% Summary of Findings Coronary angiography: 1. Left main coronary artery: No angiographic evidence of CAD. 2. Left anterior descending: The LAD is a large caliber vessel which gives rise to a large caliber diagonal vessel. No significant CAD noted angiographically within the LAD system. 3. Circumflex: Circumflex is a large caliber vessel. Circumflex and OM1 without angiographic evidence of CAD. 4. Right coronary artery: The RCA is large and dominant. No CAD noted within the RCA or PDA. Left heart catheterization: 1. No aortic stenosis. 2. Normal LVEDP; 8mmHg. 3. Left ventriculography was not performed. Sedation start time 12:22 p.m. Sedation end time 12:40 p.m. Procedural details: 1. Diagnostic coronary angiography was performed via the right radial artery with 6 [place] diagnostic JL 3.5 and JR4 catheters without known complication. Impression: 1. No CAD. 2. No aortic stenosis. 3. Normal LVEDP. 4. 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 Plan: 1. Continue risk factor modification. 2. Consider JAZ-inhibitor. Reportedly had allergic reaction to metoprolol. Hemodynamics Rest Ao: 119/64 Final Ao: 136/75 LV: 128/2/8 Recommendations Medical therapy and/or Counseling Specimens None Radiation Exposure (mGy) 685 mGy. Fluoro time 1.6 min Contrast (mls) 35 ml Procedural Complication(s) None Disposition PCU ACC Data Cardiac Status Clinical evaluation leading to the procedure CAD Presntation: Unstable angina Anginal Classification: CCS IV Heart Failure: No Cardiogenic Shock w/in 24Hrs: No Cardiac Arrest w/in 24Hrs: No Imaging studies past 6 months: Yes Stress studies past 6 months: Yes Standard Exercise Stress Test: No Stress Echocardiogram: Yes - Negative Stress Testing w/SPECT MPI: No Cardiac CTA: No Coronary Anatomy Dominant: Right Left Main (% Stenosis): Normal LAD (% Stenosis): Normal D1 (% Stenosis): Normal OM1 (% Stenosis): Normal RCA (% Stenosis): Normal R PDA (% Stenosis): Normal Left Ventricular Angiography EF (%): n/a Diagnostic Physician's Name: Berto Granados MD Status: Elective Closure Device Percutaneous Entry Location: Radial Closure Device: Radial Band Recommendations: Medical therapy and/or Counseling
[2017-05-24] MEDS ORDERED: SODIUM CHLORIDE 0.9% 1000ML 1,000 ML IV SCH (14:45)
[2017-05-24] MEDS ORDERED: LSN5 PO (18:46)
--- NOTE | 2017-05-24 20:42 | Discharge Summary ---
Discharge Summary Date of Service May 24, 2017. 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 This is estimated at 50%. No evidence for a high-grade or critical stenotic process. Procedures: [facility] Consultations: investment officer Medication Reconciliation New Medications: Aspirin (Aspirin EC Low Dose) 81 Mg Ectab 81 MG PO QAM for 30 Days Lisinopril (Lisinopril) 5 Mg Tab 5 MG PO QAM for 30 Days, #30 TAB Nicotine (Nicoderm Cq 14MG Patch) 14 Mg/24 Hr Dis 1 PATCH TD QAM for 30 Days Continued Medications: Albuterol (Ventolin Hfa) 60 Puffs/5400 Mcg Aers 2 PUFFS INH Q6 PRN for SOB/Wheezing Amoxicillin & Pot Clavulanate (Augmentin 875-125 mg) 1 Tab Tab 1 TAB PO BID for 10 Days, #20 TAB BEGIN 05/16/17 X 10 DAYS Atorvastatin (Lipitor) 40 Mg Tab 40 MG PO DAILY, TAB Mometasone Furoate-Formoterol (Dulera 200/5 Mcg) 1 Aer Aer 2 PUFFS INH BID, GM Montelukast Sodium (Montelukast Sodium) 10 Mg Tab 10 MG PO HS Nitroglycerin (Nitrostat) 0.4 Mg Sub 0.4 MG UT PRN, BTL NEEDED FOR CHEST PAIN : ONE TABLET UNDER THE TONGUE EVERY 5 MINUTES UP TO 3 DOSES. Ofloxacin (Otic) (Floxin Otic) 0.3 % Ru 7-8 DROPS OTR BID, #10 ML BEGIN 05/16/17 Tiotropium [place] (Spiriva Handihaler) 30 Puff/540 Mcg Aerp 1 CAP INH DAILY, CAP [Spiriva Handih 18MCG] () 1 CAP INH DAILY Discharge Exam s/p LHC, no c/o Review of Systems: Constitutional: No fever, No chills, No sweats, No weight loss, No weakness , No fatigue, No problem reported Eyes: No worsening of vision, No eye pain, No redness, No discharge, No diplopia, No problem reported ENT: No hearing loss, No unusual epistaxis, No nasal symptoms, No sore throat, No tinnitus, No dental problems, No trouble swallowing, No problem reported Respiratory: No cough, No sputum, No wheezing, No shortness of breath, No dyspnea on exertion, No dyspnea at rest, No hemoptysis, No problem reported Cardiovascular: No chest pain, No orthopnea, No PND, No edema, No claudication, No palpitations, No problem reported Abdomen: No pain, No nausea, No vomiting, No diarrhea, No constipation, No GI bleeding, No problem reported Genitourinary - Male: No hematuria, No dysuria, No urinary frequency, No urinary urgency, No urinary hesitancy, No urinary retention, No urinary incontinence, No penile discharge, No lesions, No impotence, No problem reported Neurologic: No memory loss, No paralysis, No weakness, No numbness/tingling , No vertigo, No balance problems, No problem reported Psychiatric: No depression symptoms, No anhedonism, No anxiety, No insomnia , No substance abuse, No problem reported Endocrine: No fatigue, No excessive thirst, No excessive urination, No problem reported Hematologic / Lymphatic: No abnormal bleeding/bruising, No clotting problems , No swollen lymph nodes, No night sweats, No problem reported Integumentary: No rash, No itch, No new/changing skin lesions, No color change, No bleeding, No problem reported Physical Exam: General Appearance: WD/WN, no apparent distress Eyes: normal inspection, PERRL ENT: normal ENT inspection, hearing grossly normal, TMs normal Neck: supple, no adenopathy, thyroid normal Respiratory/Chest: chest non-tender, normal breath sounds, no respiratory distress, no accessory muscle use, + decreased breath sounds Cardiovascular: regular rate, rhythm, no edema, no gallop Abdomen / GI: normal bowel sounds, non tender, soft, no organomegaly, no pulsatile mass Extremities: normal inspection, no calf tenderness, normal capillary refill Neurologic/Psychiatric: ems manager II-XII nml as tested, no motor/sensory deficits , alert, normal mood/affect, normal reflexes Skin: normal color, warm/dry Hospital Course A 62-year-old white male was Observation from 05/21/2017 with the problems of chest pain and abdominal pain 1. Chest pain with history of acute myocardial infarction 13 years ago and recent hospital admission because of chronic obstructive pulmonary disease exacerbation 2 months ago in [facility]. Cardiac enzyme troponin were negative 2 set, patient had dobutamine stress test done, will follow-up formal resolved Will consult cardiology if positive Patient's LDL is less than 70, Continue aspirin, no need statin for now, blood pressure and heart rate in borderline low, therefore no need a beta leonel for now consult investment officer b/c " Severe hypokinesis of the inferolateral wall" and "Mildly dilated left ventricle with mildly reduced systolic function. EF 45-50% ". , likely from hx MS years ago, but patient has no f/u investment officer, and has consulted investment officer stress echo per report in below: * 1. Negative Dobutamine stress echo for ischemia at 97 % MPHR. Baseline wall motion abnormalities as described below. * 2. Negative Dobutamine ECG for ischemia at 97 % MPHR. * 3. Appropriate blood pressure response. * 4. No arrhythmia. * 5. No chest pain reported. * Echo: * 1. Mildly dilated left ventricle with mildly reduced systolic function. EF 45 -50%. Severe hypokinesis of the inferolateral wall, otherwise, mild global hypokinesis at rest. No left ventricular hypertrophy. Type 1 diastolic dysfunction. * 2. No significant valvular abnormalities visualized. today investment officer did C, reported in below: Coronary angiography: 1. Left main coronary artery: No angiographic evidence of CAD. 2. Left anterior descending: The LAD is a large caliber vessel which gives rise to a large caliber diagonal vessel. No significant CAD noted angiographically within the LAD system. 3. Circumflex: Circumflex is a large caliber vessel. Circumflex and OM1 without angiographic evidence of CAD. 4. Right coronary artery: The RCA is large and dominant. No CAD noted within the RCA or PDA. Left heart catheterization: 1. No aortic stenosis. 2. Normal LVEDP; 8mmHg. 3. Left ventriculography was not performed. Sedation start time 12:22 p.m. Sedation end time 12:40 p.m. Procedural details: 1. Diagnostic coronary angiography was performed via the right radial artery with 6 [place] diagnostic JL 3.5 and JR4 catheters without known complication. Impression: 1. No CAD. 2. No aortic stenosis. 3. Normal LVEDP. 4. 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 Plan: 1. Continue risk factor modification. 2. Consider JAZ-inhibitor. Reportedly had allergic reaction to metoprolol. Chest x-ray shows mild fullness of the azygoesophageal recess. Chest CT has no acute PE and other acute disease Abdominal CT shows slight infiltrations may consider pancreatitis; however, lipase is not elevated. Today' lipase, continue normal, patient feeling has appetite, therefore I don't believe has any pancreatitis History of chronic obstructive pulmonary disease, continues smoking. Tobacco abuse disorder. History of dyslipidemia. History of cholecystectomy. 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 This is estimated at 50%. No evidence for a high-grade or critical stenotic process. Has discussed with patient about the results, recommend to follow-up with PCP recent ear infection, he was having some pain , but no more pain, recent right ear infection, will continue Augmentin and ear drops for 6-7 days more. Deep venous thrombosis prophylaxis is heparin. Gastrointestinal prophylaxis is Protonix. in 7:10pm , pt reeval no cp, cardiac cath area kirkpatrick sno obvious swelling and pain , investment officer called, and recs pt can be discharged, patient discharged today in stable conditions Instructions / Follow-Up you have chest pain when was admitted cardiac cath was done, per report: there is No CAD, No aortic stenosis. we recomend Continue risk factor modification., we added Consider JAZ-inhibitor new medication Lisinopril for you, you reported had allergic reaction to Metoprolol. 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 This is estimated at 50%. No evidence for a high-grade or critical stenotic process. - you need to follow up with your primary care physician in 1 week,for all of the above conditions - take medication as instructed, never overdose or any misuse, or take with alcohol, because misuse of medicine may cause organ damage or , call your primary care physician if have questions of medicaitons. - call your primary care physician OR go to local emergency room if has any fever/chill, chest pain, shortness of breathing, nausea/vomiting/abdominal pain , facial droop/slurry speech/local weakness, or if has any questions. - fall precaution - diet as instructed - you need to follow up with your subspecialist - you should understand that it is important to follow up the above instruction , and "not following the above instruction" may cause delayed or missed care of your medical conditions which may cause permanent organ damage and even . Total Time Spent: Greater than 30 minutes This includes examination of the patient, discharge planning, medication reconciliation, and communication with other providers. Discharge Instructions Please refer to the electronic Patient Visit Report (Discharge Instructions) for additional information. Additional Copies To Nathanael Barton M.D.; Berto Granados MD
[2017-05-25] MEDS ORDERED: LISINOPRIL 5 MG TAB PO SCH (09:00)
== END 2017-05-24 19:15 | disposition home or self-care (01) ==
LOC: EDUNIT# 16:00 → C.EDB 16:07 → C.MED 18:30 → ENRESERV 19:07 → C.MED 05-22 09:25 → ENRESERV 05-24 12:52 → C.2T 05-24 13:32
PROVIDERS: ADMIT Hospitalist; ATTEND Hospitalist
DX: R07.89 Other chest pain (principal); I42.9 Cardiomyopathy, unspecified; J44.9 Chronic obstructive pulmonary disease, unspecified; L29.9 Pruritus, unspecified; T44.7X5A Adverse effect of beta-adrenoreceptor antagonists, initial encounter; I25.10 Atherosclerotic heart disease of native coronary artery without angina pectoris; F17.200 Nicotine dependence, unspecified, uncomplicated; E78.5 Hyperlipidemia, unspecified; Z83.3 Family history of diabetes mellitus; Z79.82 Long term (current) use of aspirin; Z79.899 Other long term (current) drug therapy; I25.2 Old myocardial infarction; Z66 Do not resuscitate